=== PATIENT | male | born 1975 | race Caucasian/White ===

== ENCOUNTER 2023-08-28 07:35 | Day surgery (SDC) | payer BC, OTHER ==
[~2023-08-28] VITALS: Ht 177.8 cm; Wt 102.0 kg
[~2023-08-28 07:35] MED LIST: ALBUTEROL INHALER; AMITRIPTYLINE H25 MG PO; NAPROXEN; NAPROXEN250 MG PO; PERCOCET 7.5-31 EACH PO; SYMBICORT 16010.2 GM INH; WELLBUTRIN; ZOFRAN ODT4 MG SL
[2023-08-28 07:53] VITALS: BP 144/89
[2023-08-28] MEDS ORDERED: PERCOCET 7.5-31 EACH PO (10:13)
[2023-08-28] MEDS ORDERED: MOTRIN IB200 MG PO (10:14)
[2023-08-28] MEDS ORDERED: TYLENOL EXTRA500 MG PO (10:14)
[2023-08-28 10:37] VITALS: BP 142/91
[2023-08-28 11:30] VITALS: BP 136/94
--- NOTE | 2023-08-30 13:56 | OR ---
[facility] [address] [place], [place] [address] Signed DATE OF OPERATION: 08/28/2023 SURGEON: Cindy Cornell MD PREOPERATIVE DIAGNOSIS: Symptomatic incarcerated umbilical hernia. POSTOPERATIVE DIAGNOSIS: Symptomatic incarcerated umbilical hernia, incarcerated viscus omentum. PROCEDURES: 1. Repair of incarcerated umbilical hernia fascial defect 2 cm. 2. Resection of portion of the omentum. 3. Implantation of Prolene mesh underlay technique. ANESTHESIA: General LMA, Cindy Coyne CRNA INDICATIONS: This 48-year-old [place] man was seen by me a few days ago, anticipating colonoscopy, but has developed a very painful umbilical hernia that is not reducible. Exquisite tenderness is noted in the area. It does not appear to be a hollow viscus, it is incarcerated. He is admitted at this time to undergo repair of the incarcerated hernia. He understands the risk of bleeding, infection, recurrence and so on. FINDINGS: Incarcerated viscus was omentum. Probably 6 cm of omentum was resected. The defect itself was relatively small, only 2 cm. Implantation of Prolene mesh was undertaken with an underlay technique with reapproximation of fascia over that. DESCRIPTION OF PROCEDURE: The patient was brought to the operating room, given a general LMA type anesthetic. Preoperative antibiotic Ancef was given. Sequential compression device stockings were used and heparin subcutaneously administered. The mid abdomen was already clipped by the patient but was additionally clipped and subsequently prepared with a chlorhexidine solution and draped sterilely. Palpation of the incarcerated hernia to the umbilicus showed it still to be nonreducible. A curvilinear incision was made in the right inferior aspect of the umbilical fold. Dissection was carried through the dermis where immediately noted was protruding omentum. The omentum was from the surrounding soft tissue including the overlying dermis of the umbilicus itself. This Electronically Signed By: CINDY CORNELL MD 08/30/23 1356 PATIENT NAME: LAURIE MORILLO OPERATIVE REPORT DATE OF : 73 REPORT #: [id number] PHYSICIAN: CINDY CORNELL MD [facility] REPORT IS CONFIDENTIAL AND NOT TO BE RELEASED WITHOUT AUTHORIZATION [facility] [address] [place], [place] [address] Signed omentum was not infarcted by any means, but was not reducible through the small defect. On that basis, it was resected. The vascular pedicle was secured with 0 Vicryl suture. This allowed for complete visualization of the fascial defect which was only 2 cm or less. Using electrocautery, the fascia was freed from the surrounding soft tissue. The properitoneal space was developed with blunt dissection using DeBakey forceps on the blunt side. A segment of Prolene mesh was cut to a circular configuration and placed into the properitoneal space. The relaxing fascial incision was made to the left to accommodate the mesh. The mesh was sewn into the properitoneal space with interrupted 0 Prolene suture. The midline fascia was then reapproximated with interrupted 0 Prolene suture in a vertical mattress configuration. 10 mL of 0.25% Marcaine with epinephrine was injected locally. The Siobhan's layer was reapproximated with interrupted 2-0 Vicryl and skin closed with running subcuticular 3-0 Vicryl. Steri-Strips were applied as was an Acticoat dressing. The patient tolerated the procedure well, was ultimately extubated without problem, taken to recovery room in good condition having suffered no complications. Sponge, needle, and instrument counts reported as correct x3. MD BRIANNA Carr/LCL /[id number] cc: MICHELLE Cruz Copies: ~ Electronically Signed By: CINDY CORNELL MD 08/30/23 1356 PATIENT NAME: LAURIE MORILLO OPERATIVE REPORT DATE OF : 73 REPORT #: [id number] PHYSICIAN: CINDY CORNELL MD [facility] REPORT IS CONFIDENTIAL AND NOT TO BE RELEASED WITHOUT AUTHORIZATION
--- NOTE | 2023-09-06 17:04 | PATH ---
[facility] [address] [place], [place] [address] Signed SPECIMEN(S): A PORTION OF OMENTUM INCARCERATED HERNIA SPECIMEN SOURCE: A. PORTION OF OMENTUM INCARCERATED HERNIA CLINICAL HISTORY: Umbilical hernia repair FINAL PATHOLOGIC DIAGNOSIS: Portion of omentum: - Omental adipose tissue with vascular congestion. TWK MICROSCOPIC EXAMINATION: Histologic sections of all submitted blocks are examined by light microscopy. These findings, together with the gross examination, support the pathologic diagnosis. GROSS DESCRIPTION: The specimen, labeled and designated "SaranKunal, " and designated on the requisition "portion of omentum incarcerated hernia," is received in formalin and consists of a 3.5 x 2.8 x 2.4 cm pink membranous saclike structure that contains a yellow-ross multilobulated adipose tissue. Separate within the container is an additional portion of yellow-ross multilobulated adipose tissue that is 4.2 x 2.9 x 2.0 cm. Upon sectioning no mass lesions are grossly identified. Heating Unit Installer sections are submitted in (A1). FB (under the direct supervision of a pathologist) The Gross Description was prepared using a voice recognition system. The report was reviewed for accuracy; however, sound-alike word errors, addition and/or deletions may occur. If there is any question about this report, please contact Client Services. ADDITIONAL NOTES: Immunohistochemical and/or in situ hybridization studies if performed in this case included appropriate positive controls that reacted as expected. This test was developed and its performance characteristics determined by [facility]. It has not been cleared or approved by the U.S. Food and Drug Administration. The FDA has determined that such clearance or approval is not necessary. This test is used for clinical purposes. It should not be regarded PATIENT NAME: LAURIE MORILLO PATHOLOGY DATE OF : 73 REPORT #: [id number] PHYSICIAN: [facility] PATHOLOGY PCP: [facility] REPORT IS CONFIDENTIAL AND NOT TO BE RELEASED WITHOUT AUTHORIZATION [facility] [address] [facility] [place], [place] [address] Signed as investigational or for research. [facility] is certified under the Clinical Laboratory Improvement Amendments of 1988 (CLIA) as qualified to perform high complexity clinical laboratory testing. PERFORMING LABORATORY: Technical component was performed by [facility], [address] [place] [id number] (CLIA# [id number]). [facility], [address] [place] [address] (CLIA#:[id number]). Diagnostician: Sunny Bosch MD Pathologist Electronically Signed 09/06/2023 Copies: ~ PATIENT NAME: LAURIE MORILLO PATHOLOGY DATE OF : 73 REPORT #: [id number] PHYSICIAN: [facility] PCP: [facility]- REPORT IS CONFIDENTIAL AND NOT TO BE RELEASED WITHOUT AUTHORIZATION
== END 2023-08-28 11:40 | disposition home or self-care (01) ==
LOC: DS 07:35
PROVIDERS: ATTEND Surgery
PROC: 0WUF0JZ Supplement Abdominal Wall with Synthetic Substitute, Open Approach (ICD-10-PCS; principal; 2023-08-28 09:00)
DX: K42.0 Umbilical hernia with obstruction, without gangrene (principal); A49.02 Methicillin resistant Staphylococcus aureus infection, unspecified site; J45.909 Unspecified asthma, uncomplicated; K21.9 Gastro-esophageal reflux disease without esophagitis; Z79.899 Other long term (current) drug therapy
CPT/HCPCS: 00750; C1781; J0330; J0690; J1100; J1644; J1885; J2250; J2405; J2704; J2765; J3010; J7121